=== PATIENT | female | born 1945 | race Two or more races ===

== ENCOUNTER 2024-01-18 08:29 | Outpatient (REF) | payer OTHER, SELFPAY ==
[2024-01-18 10:45] LABS: Anion Gap 13 (12-20); Blood Urea Nitrogen 26 mg/dL (9-16); Calcium 10.1 mg/dL (8.4-10.2); Carbon Dioxide 28 mmol/L (22-29); Chloride 104 mmol/L (96-108); Estimated Glomerular Filt Rate > 60; Glucose Random 99 mg/dL (60-115); Potassium 3.3 mmol/L (3.3-5.1); Sodium 142 mmol/L (135-145)
[2024-01-18 11:04] LABS: T4 Thyroxine 6.8 ug/dL (4.5-12.0)
[2024-01-18 11:06] LABS: Vitamin B12 433 pg/mL (200-900)
== END 2024-01-18 08:30 | disposition home or self-care (01) ==
LOC: HO.LAB 08:29
PROVIDERS: PCP Physician Assistant Medical; Visit Provider Psychiatry & Neurology Neurology
DX: F01.50 Vascular dementia, unspecified severity, without behavioral disturbance, psychotic disturbance, mood disturbance, and anxiety (principal)
CPT/HCPCS: 36415; 80048; 82607; 84436; 84443

== ENCOUNTER 2025-08-31 08:59 | Outpatient (AMB) | payer OTHER, SELFPAY ==
--- NOTE | 2025-08-31 09:07 | A.OFFVIS_ITS ---
Intake Visit Reasons: 6m Dementia Atmospheric Physics Professor Services: Atmospheric Physics Professor Offered & Declined (son to translate) Accompanied by: Son Allergies No Known Allergies Allergy (Verified 08/31/25 09:11) Medication List - Last Reconciled 08/31/25 by Heather Carr CNP amitriptyline 10 mg PO BEDTIME citalopram 20 mg PO DAILY cyanocobalamin (vitamin B-12) 1,000 mcg PO DAILY folic acid 1 mg PO DAILY lisinopril-hydrochlorothiazide 20-25 mg 1 tab PO DAILY memantine 10 mg PO BID 90 days methotrexate sodium 20 mg PO QWEEK metoprolol succinate ER 25 mg PO DAILY mirtazapine 7.5 mg PO BEDTIME potassium chloride ER 20 mEq PO DAILY rosuvastatin 20 mg PO DAILY HPI Comments Details: 80-year-old woman with long history of depression, hypertension, hyperlipidemia, and seronegative rheumatoid arthritis, who is here for memory problems that began around 2019. She is living with her daughter after living alone for 40+ years. She was found to be anemic and follows?with hematology/oncology at [facility] She was doing okay. Memory stable, some days better than others. Forgetful at times and needed reminders. Mood was generally okay. Appetite was okay. Sleep was okay. She was going to day program which she enjoyed. [facility] Medical History (Updated 08/31/25 @ 09:10 by Heather Carr CNP) Depression Seronegative rheumatoid arthritis Hypercholesteremia Hypertension Review of Systems Const Denies chills, Denies daytime sleepiness, Denies difficulty sleeping, Denies fatigue, Denies fever(s), Denies frequent falls, Denies headache(s), Denies increased appetite, Denies poor appetite, Denies snoring, Denies weakness, Denies weight gain and Denies weight loss Eyes Denies loss of vision ENT Denies vertigo, Denies dizziness, Denies headache(s) and Denies neck pain Card Denies chest pain at rest, Denies chest pain with activity, Denies syncope, Denies leg edema, Denies palpitations, Denies dyspnea and Denies dyspnea on exertion Resp Denies cough, Denies dyspnea, Denies dyspnea on exertion and Denies snoring GI Denies abdominal pain, Denies constipation, Denies heartburn, Denies diarrhea and Denies nausea Denies urinary frequency, Denies urinary incontinence and Denies urinary urgency Musc Denies abnormal gait, Denies back pain, Denies myalgias, Reports arthralgias, Denies neck pain, Denies numbness and Denies tingling Neuro Denies abnormal gait, Denies vertigo, Denies dizziness, Denies syncope, Denies frequent falls, Denies headache(s), Denies lack of coordination, Denies loss of vision, Reports memory loss, Denies numbness, Denies Other visual disturbances, Denies restless legs, Denies seizure-like activity, Denies tingling, Denies paresthesias, Denies tremor(s) and Denies weakness Psych Denies anxiety, Denies depression, Denies auditory hallucinations, Reports memory loss and Denies visual hallucinations Endo Denies fatigue and Denies palpitations Physical Exam Const Other: General Appearance:? normal, in no acute distress. Heart:? S1, S2 normal, no murmurs. Lungs:? clear anteriorly and posteriorly. Musculoskeletal:? normal. Extremities:? no edema. Psych:? alert, as below. Neuro Other: Abnormal Neurological Findings: MMSE 24/30. Mental Status: alert, as below. Cranial Nerves: Pupils are equal, round, and reactive to light. External ocular muscles are intact. Visual oconnor are full, no ptosis. Face is symmetrical, no facial weakness or droop. Facial sensations are normal. Tongue protrudes in midline. Palate elevates symmetrically. Shoulder shrugging is normal Motor Examination: Normal muscle tone, bulk and strength. No atrophy or fasciculations. No drift of the extended upper extremities. DTR 2+. Plantars are flexor. Sensory Exam: Normal light touch, temperature, pinprick, vibration, and joint- position sensations. Rhomberg sign is absent. Coordination: No ataxia. No titubation. Gait Exam: Within normal limits. Cerebellar Signs: Macnlt-yz-hoal is okay. Extrapyramidal System: No tremor, rigidity with normal facial expressions. No bradykinesia. No bradyphrenia. Normal arm swing and posture. No propulsion or retropulsion. Speech: Normal. MMSE Level of Consciousness: Alert. Orientation: Knows correct year, month, date, day and season. Knows correct city, county and state. Knows correct location and floor. Registration: Able to register 3 objects. Attention: Serial 7's unable. Recall: Able to recall 2 out of 3 objects. Language: Normal spontaneous speech, fluency, repetition, naming, comprehension, reading, and writing. Total Score: 24/30. 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 Assessment & Plan Assessment & Plan (1) Vascular dementia: Code(s): F01.50 - Vascular dementia, unspecified severity, without behavioral disturbance, psychotic disturbance, mood disturbance, and anxiety Category: Medical Qualifiers: Dementia severity: unspecified severity Dementia behavioral or psychological symptom: unspecified whether behavioral, psychotic, or mood disturbance or anxiety Qualified Code(s): F01.50 - Vascular dementia, unspecified severity, without behavioral disturbance, psychotic disturbance, mood disturbance, and anxiety Plan: Continue memantine 10mg 1 tablet twice a day. Stay physically and socially active. Plan Meds tried: donepezil Coding Level of Care Code Est Pt Level 4 (52926) Diagnoses Vascular dementia, unspecified dementia severity, unspecified whether behavioral, psychotic, or mood disturbance or anxiety F01.50 Dementia severity: unspecified severity Dementia behavioral or psychological symptom: unspecified whether behavioral, psychotic, or mood disturbance or anxiety
--- OUTSIDE RECORDS SUMMARY | 2025-08-31 09:41 | XMS_ITS | Encounter Summary ---
Author Organization [facility] Address [address] [place] [address] Care Team Providers Care Siding Coreboard Inspector Name Role Phone Aamir Dunbar Primary Care Provider [phone] Reason for Visit * Reason Onset Date Comments faxed order 08/24/2025 [facility] - 08/04/25 Encounter Details Date Type Department Care Team (Late st Contact Info) Description 08/24/2025 Telephone Adult Medicine [address] [phone] Aamir Dunbar PA [address] [place] [address] Social History Tobacco Use Types Packs/Day Years Used Date Smoking Tobacco: Never Smokeless Tobacco: Never Alcohol Use Standard Drinks/Week Comments No 0 (1 standard drink = 0.6 oz pur e alcohol) Housing Instability Answer Date Recorde d Are you worried that in the next 2 months you may not have stable housing? No 11/03/2024 Food Access & Nutrition Answer Date Rec orded Do you have access to a vari ety of food including fruits and vegetables? Yes 11/03/2024 Access to Healthcare Answer Date Record ed Within the last 3 months, ho w many times did you visit the emergency department for your medical care? 0 11/03/2024 Health Literacy Answer Date Recorded How often do you need to hav e someone help you when you read instructions, pamphlets, or other written material from your doctor or pharmacy? Never 11/03/2024 Caregiver: How often do you need to have someone help you when you read instructions, pamphlets, or other written material from your doctor or pharmacy? Not on file 11/03/2024 Financial Risk Answer Date Recorded How hard is it for you to pa y for the very basics like food, housing, medical care, and air conditioning / heating? Not very hard 11/03/2024 Transportation Answer Date Recorded Has the lack of transportati on kept you from meetings, work, or from getting things needed for daily living? No Has the lack of transportati on kept you from medical appointments or from getting medications? No 11/03/2024 Social Isolation Answer Date Recorded How often do you feel lonely or isolated from th ose around you? Never 11/03/2024 Food Risk Answer Date Recorded Within the past 12 months we worried whether our food would run out before we got money to buy more. Never true 11/03/2024 Within the past 12 months th e food we bought just didn't last and we didn't have money to get more. Never true 11/03/2024 Dependent Care Answer Date Recorded Do you need help finding or paying for care for your loved ones. For example, child welfare director or elderly care for an older adult? No 11/03/2024 Education Answer Date Recorded Do you think completing more education or training, like finishing a GED, going to college, or learning a trade, would be helpful for you? No 11/03/2024 Employment and Income Answer Date Recor ded During the last four weeks, have you been actively looking for work? No 11/03/2024 Living Situation Answer Date Recorded What is your living situation? Unrecognized valu e 11/03/2024 Interpersonal Safety Answer Date Record ed Physical Abuse Unrecognized value 11/10/2024 Verbal Abuse Unrecognized value 11/10/2024 Comments Unknown Sex and Gender Information Value Date Recorded Sex Assigned at Female 11/17/2024 8:45 AM EST Legal Sex Female 4:37 AM EST Gender Identity Female 11/17/2024 8:45 AM EST Sexual Orientation Straight 11/17/2024 8: 45 AM EST documented as of this encounter Progress Notes * Rody Cedeño [place] - 08/26/2025 12:22 PM EDT Order signed, scanned and faxed back. 08.26.2025 * Alexandru Breaux - 08/24/2025 10:31 AM EDT [facility] orders dated 08/04/25 receieved. Please sign and fax to [phone]. documented in this encounter Plan of Treatment Upcoming Encounters Date Type Department Care Team (Late st Contact Info) Description 09/25/2025 10:30 AM EST Office Visit Adult Medicine [address] [phone] Ana Rai PA [address] [place], [place] 11/26/2025 8:45 AM EST Office Visit [facility] Hematology Oncology [address] [place] [phone] Amie Ross PA [address] [place] [address] 11/27/2025 9:00 AM EST Office Visit Adult Medicine [address] [phone] Aamir Dunbar PA [address] [place] [phone] 02/03/2026 7:00 AM EDT Ancillary Procedure [facility] - [address] Jeff [address] [place] [phone] documented as of this encounter Visit Diagnoses Not on filedocumented in this encounter Additional Health Concerns Assessment Noted Time PHQ-9 Depression Total Score: 6 08/11/20 8:25 AM EDT documented as of this encounter Care Teams Siding Coreboard Inspector Relationship Specialty Start Date End Date Aamir Dunbar PA [address] [place] [address] PCP - General Internal Medicine 10/06/24 documented as of this encounter
--- OUTSIDE RECORDS SUMMARY | 2025-08-31 09:41 | XMS_ITS | Encounter Summary ---
Author Organization [facility] Address [address] [place] [address] Care Team Providers Care Water Plumber Name Role Phone Aamir Dunbar Primary Care Provider [phone] Reason for Visit * Reason Onset Date Comments Results 08/26/2025 Encounter Details Date Type Department Care Team ([facility] st Contact Info) Description 08/26/2025 Telephone Adult Medicine [facility] [address] [place] [phone] Darby Watts PA [address] [place] [phone] Social History Tobacco Use Types Packs/Day Years [...] care for your loved ones. For example, children counselor or elderly care for an older adult? [...] as of this encounter Progress Notes * Florence England - 08/31/2025 8:45 AM EDT Daughter Saskia calling again for results * Kristy Sawant - 08/26/2025 9:04 AM EDT Inform patient: ANY URGENT OR ABNORMAL RESULTS WIILL RESULT IN A CALL BACK TO THE PATIENT ANDREIA. Patient daughter Saskia is calling. States her mother was given paperwork showing results of xray but doesn't know what it means. Saskia is asking that Darby or her Market Research Specialist call to discuss further. Type of test: :xray of back Date test was performed: 08/11/25 Where was the test performed: [facility] Who ordered this test?: Darby BLUE Is the doctor here today?: yes Can the message wait until the doctor returns?: no IF PATIENT'S PCP IS NOT IN INSTRUCT PATIENT THAT THEY WILL RECEIVE A CALL BACK WHEN THE PCP IS IN THE OFFICE NEXT. documented in this encounter Plan of Treatment Upcoming Encounters Date Type Department Care Team (Late st Contact Info) Description 09/25/2025 10:30 AM EST Office Visit Adult Medicine [address] [phone] Ana Rai PA [address] [place], [place] 11/26/2025 8:45 AM EST Office Visit [facility] Hematology Oncology [address] [place] [phone] Amie Ross PA [address] [place] [address] 11/27/2025 9:00 AM EST Office Visit Adult Medicine [address] [phone] Aamir Dunbar PA [address] [place] [phone] 02/03/2026 7:00 AM EDT Ancillary Procedure [facility] - [place] [address] [place] [address] [phone] documented as of this encounter Visit Diagnoses Not on filedocumented in this encounter Additional Health Concerns Assessment Noted Time PHQ-9 Depression Total Score: 6 08/11/20 25 8:25 AM EDT documented as of this encounter Care Teams Water Plumber Relationship Specialty Start Date End Date Aamir Dunbar PA [address] [place] [address] PCP - General Internal Medicine 10/06/24 documented as of this encounter
--- OUTSIDE RECORDS SUMMARY | 2025-08-31 09:41 | XMS_ITS | Encounter Summary ---
Author Organization [facility] Address [address] [facility] [address] [place] [address] Care Team Providers Care Firm Administrator Name Role Phone Unavailable Primary Care Provider Unavailabl e Encounter Details Date Type Department Care Team (Latest Contact Info) Description 03/11/2019 Abstract [facility] CONVERSIONS Dental, Provider, DDS Social History Tobacco Use Types Packs/Day Years Used Date Smoking Tobacco: Never Assessed Comments Unknown Sex and Gender Information Value Date Recorded Sex Assigned at Female 09/04/2022 10:24 AM EDT Legal Sex Female 10:24 AM EDT Gender Identity Not on file Sexual Orientation Not on file documented as of this encounter Plan of Treatment Not on file documented as of this encounter Visit Diagnoses Not on filedocumented in this encounter
--- OUTSIDE RECORDS SUMMARY | 2025-08-31 09:41 | XMS_ITS | Encounter Summary ---
Author Organization [facility] Address [address] [place] [address] Care Team Providers Care Dispatch Associate Name Role Phone Aamir Dunbar Primary Care Provider [phone] Encounter Details Date Type Department Care Team ([facility] st Contact Info) Description 08/12/2025 Results Follow-Up Adult Medicine [facility] [address] [place] [phone] Darby Watts PA [address] [place] [phone] Social History Tobacco Use Types Packs/Day Years [...] care for your loved ones. For example, early childhood education coordinator or elderly care for an older adult? [...] AM EST documented as of this encounter Plan of Treatment Upcoming Encounters Date Type Department Care Team (Late st Contact Info) Description 09/25/2025 10:30 AM EST Office Visit Adult Medicine [address] [phone] Ana Rai PA [address] [place], [place] 11/26/2025 8:45 AM EST Office Visit [facility] Hematology Oncology [address] [place] [phone] Amie Ross PA [address] [place] [address] 11/27/2025 9:00 AM EST Office Visit Adult Medicine [facility] [address] [place] [phone] Aamir Dunbar PA [address] [place] [phone] 02/03/2026 7:00 AM EDT Ancillary Procedure [facility] - [address] Jeff [address] [place] [phone] documented as of this encounter Visit Diagnoses Not on filedocumented in this encounter Additional Health Concerns Assessment Noted Time PHQ-9 Depression Total Score: 6 08/11/20 25 8:25 AM EDT documented as of this encounter Care Teams Dispatch Associate Relationship Specialty Start Date End Date Aamir Dunbar PA [address] [place] [address] PCP - General Internal Medicine 10/06/24 documented as of this encounter
--- OUTSIDE RECORDS SUMMARY | 2025-08-31 09:41 | XMS_ITS | Clinical Summary ---
Author Organization [employer] Address [address] [place] [address] Care Team Providers Care Paper Steamer Name Role Phone Unavailable Primary Care Provider Unavailabl e Social History Tobacco Use Types Packs/Day Years Used Date Smoking Tobacco: Never Assessed Comments Unknown Sex and Gender Information Value Date Recorded Sex Assigned at Female 09/04/2022 10:24 AM EDT Legal Sex Female 10:24 AM EDT Gender Identity Not on file Sexual Orientation Not on file Plan of Treatment Health Maintenance Due Date Last Done Comments Depression Screening 1945 Alcohol/Substance Use Screening 1958 Tobacco Screening 1958 DTaP/Tdap/Td Vaccines (1 - Tdap) 1965 Pneumococcal Vaccine: 50+ Ye ars (1 of 1 - PCV) 1996 Zoster Vaccines (1 of 2) 1996 RSV Patients and Pa tients Aged 60 years or older (1 - 1-dose 75+ series) 2021 COVID-19 Vaccine (1 - 2023-2 5 season) 2025 Influenza Vaccine (#1) 2025 HIB Vaccines Aged Out No longer eligi ble based on patient's age to complete this topic HPV Vaccines Aged Out No longer eligi ble based on patient's age to complete this topic Hepatitis A Vaccines Aged Out No long er eligible based on patient's age to complete this topic Hepatitis B Vaccines Aged Out No long er eligible based on patient's age to complete this topic IPV Vaccines Aged Out No longer eligi ble based on patient's age to complete this topic Meningococcal B Vaccine Aged Out No l onger eligible based on patient's age to complete this topic Meningococcal Vaccine Aged Out No iona maria antonia eligible based on patient's age to complete this topic RSV under 20 months Aged Out No longe r eligible based on patient's age to complete this topic Rotavirus Vaccines Aged Out No longer eligible based on patient's age to complete this topic
--- OUTSIDE RECORDS SUMMARY | 2025-08-31 09:41 | XMS_ITS | Clinical Summary ---
Author Organization [facility] Address [address] [place] [address] Care Team Providers Care Gift Manager Name Role Phone Aamir Dunbar Primary Care Provider [phone] Allergies No known active allergies Medications ASPIRIN ORAL Take 1 tablet by mouth 1 (one) time each day. 12/31/19 14 Active lactose-reduce d food (ENSURE PLUS ORAL) Take 1 Units by mouth 1 (one) time each day. SERGIO-99 1 per day 30 per month with 11 refills 08/14/20 24 Active folic acid (FOLVITE) 1 mg tablet Take 1 tablet (1,000 mcg total) by mouth 1 (one) time each day. 12/15/19 24 Active memantine (NAMENDA) 10 mg tablet Take 1 tablet (10 mg total) by mouth 2 (two) times a day. Active metoprolol succinate (TOPROL-XL) 25 mg 24 hr tablet TAKE 1 TABLET BY MOUTH EVERY DAY 90 tablet 3 09/26/20 24 Active mirtazapine (REMERON) 7.5 mg tablet TAKE 1 TABLET BY MOUTH AT BEDTIME 90 tablet 3 10/06/20 24 Active rosuvastatin (CRESTOR) 20 mg tablet TAKE 1 TABLET BY MOUTH EVERY DAY 90 tablet 3 09/27/20 24 Active citalopram (CeleXA) 20 mg tablet TAKE 1 TABLET BY MOUTH EVERY DAY 90 tablet 3 12/17/19 25 Active potassium chloride (KLOR-CON M20) 20 mEq CR tablet TAKE 1 TABLET BY MOUTH EVERY DAY 90 tablet 1 02/06/20 25 Active amitriptyline (ELAVIL) 10 mg tablet TAKE 1 TABLET BY MOUTH EVERYDAY AT BEDTIME 90 tablet 1 02/06/20 25 Active lisinopril-hyd roCHLOROthiazi de (PRINZIDE,ZEST ORETIC) 20-25 mg per tablet Take 1 tablet by mouth 1 (one) time each day. 90 tablet 06/10/20 25 Active cyanocobalamin (VITAMIN B-12) 1,000 mcg tablet TAKE 1 TABLET (1,000 MCG TOTAL) BY MOUTH ONCE DAILY 90 tablet 1 08/04/20 25 Active methotrexate 2.5 mg tabletIndicati ons:Rheumatoid arthritis without rheumatoid factor, unspecified site (CMS/[facility] V24, CMS/HCC V28) Take 6 tablets (15 mg total) by mouth 1 (one) time per week Follow directions carefully, and ask to explain any part you do not understand. Take exactly as directed. 08/11/20 25 Active donepeziL (ARICEPT) 10 mg tablet Take 1 tablet (10 mg total) by mouth at bedtime. 025 Discontinued( erapy completed) cyanocobalamin (VITAMIN B-12) 1,000 mcg tablet TAKE 1 TABLET (1,000 MCG TOTAL) BY MOUTH ONCE DAILY 90 tablet 1 12/25/19 25 025 Discontinued methotrexate 2.5 mg tabletIndicati ons:Rheumatoid arthritis without rheumatoid factor, unspecified site (CMS/[facility] V24, CMS/HCC V28) TAKE 8 TABLETS BY MOUTH ONE TIME PER WEEK 96 tablet 1 02/06/20 25 025 Discontinued Active Problems Problem Noted Date Diagnosed Date Stage 3a chronic kidney disease (CMS/[facility] V24, CM S/HCC V28) 11/11/2024 Dilatation of thoracic aorta ([facility] V24) 02/28 Assessment & Plan (03/02/2025 3:09 PM EDT): Mildly dilated ascending aorta on last echo. BP at goal<130/80. Will plan to repeat echo in one year to reassess. Abnormal stress test 12/14/2023 Coronary artery disease 12/14/2023 Overview (08/21/2024): Last Assessment & Plan: Abnormal stress test with symptoms of dyspnea on exertion. Stress test did not suggest evidence of ischemia and is most consistent with a prior silent IA involving the inferior wall. I recommended optimization medical therapy with reservation of cardiac catheterization for worsening or refractory symptoms. She continue low- dose of aspirin indefinitely. She continue on statin therapy (I noted a single extremely elevated LDL which I surmise must be artifactual as prior measurements were reasonably controlled). Reasonable to continue current blood pressure regimen. Will add metoprolol as an antianginal. She will reassess her symptoms and we will follow-up with her to make medication adjustments. Assessment & Plan (03/02/2025 3:11 PM EDT): Abnormal stress test with likely prior silent inferior IA. No ischemia on stress test and no ongoing symptoms of coronary insufficiency. Continue on a low dose of aspirin indefinitely. Continue statin therapy (prior very elevated LDL was artifactual). BP at goal <130/80. Continue Metoprolol as anti-anginal therapy. She will let us know if she has new concerning symptoms. 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 08/14/2018 - depo-medrol 80 mg injection, right shoulder Depression 04/19/2010 Osteoarthritis of lumbar spine 10/13/2009 Overview (08/21/2024): On SSI; previous lumbar srurgery 1988 Hyperlipemia 05/12/2009 Resolved Problems Problem Noted Date Diagnosed Date Resolved Date Fall 11/10/2024 11/10/2024 CVA (cerebral vascular accid ent) ([facility]24, [facility] V28) 11/09/2024 11/10/2024 Encounters Date Type Department Care Team Description 08/26/2025 Telephone Adult Medicine [address] [phone] Darby Watts PA 08/24/2025 Telephone Adult [address] [phone] Aamir Dunbar PA 08/20/2025 Telephone Adult [address] [phone] Ramos Chester [place] 08/12/2025 Results Follow-Up [address] [phone] Darby Watts PA 08/11/2025 2:07 PM EDT - 08/11/2025 11:59 PM EDT Hospital Encounter [address] [phone] Spondylosis of lumbar region without myelopathy or radiculopathy Discharge Disposition: Home or Self Care 08/11/2025 1:30 PM EDT Office Visit Adult [address] [phone] Darby Watts PA Hypertension, unspecified type (Primary Dx); Other hyperlipidemia; Prediabetes; Spondylosis of lumbar region without myelopathy or radiculopathy; Seronegative rheumatoid arthritis ([facility] V24, [facility] V28); Stage 3a chronic kidney disease ([facility] V24, [facility] V28); Cognitive impairment; Anemia of chronic disease; Need for influenza vaccination; Rheumatoid arthritis without rheumatoid factor, unspecified site ([facility] V24, [facility] V28) from Last 3 Months Immunizations Immunization Administration Dates Next Due H1N1 Inj Preservative Free 10/13/2009 Influenza Quadravalent, MDCK , 0.5ml, with preservative (Flucelvax) 6mo and older 07/31/2023,08/03/2020 Influenza trivalent, 0.5mL ( Fluad) 65yo and older 08/11/2025,08/13/2024,10/23/2022,08/22,08/17/2019 Influenza trivalent, 0.5mL, preservative free (Fluarix; FluLaval; Fluzone) ages 6mo and older (Afluria) 3 years and older 09/06/2016,08/04/2015,09/24/2013,07/22 Influenza trivalent, with pr eservative (Fluzone; Afluria) 6mo and older 09/03/2019 Influenza, Unspecified 08/06/2020 Pfizer (ages 12 & older) Biv alent, COVID-19 09/20/2022 Pneumococcal conjugate 13 va lent (Prevnar 13, PCV13) 2mo and older 09/06/2016 Pneumococcal polysaccharide 23 valent (Pneumovax 23) 2yo and older 12/06/2011 Td Tetanus diptheria (Tdvax) 7yo and older 12/06/2011 Tdap Tetanus diptheria acell ular pertussis (Boostrix; Adacel) 7yo and older 10/13/2020 Zoster recombinant (Shingrix ) 19yo and older 10/02/2023,07/31/2023 Surgical History Surgery Date Site/Laterality Comments BACK SURGERY PROCEDURE: HISTORICAL BACK SURGERY; COMMENT: dr fuentes lumbar disc SHOULDER SURGERY corsetti PROCEDURE: HISTORICAL SHOULDER SURGERY; COMMENT: bilateral surger for rotator cuff problems CARPAL TUNNEL RELEASE PROCEDURE: HISTORICAL CARPAL TUNNEL REL; COMMENT: right OTHER SURGICAL HISTORY PROCEDURE: REMOVAL OF LEG VEINS; COMMENT: stripping Medical History Medical History Date Comments Osteoarthritis of lumbar spine 10/13/2009 D X:Osteoarthritis of lumbar spine Historical Medical DX 05/12/2009 DX:HTN Vitamin D deficiency 05/12/2009 DX:Vitamin D deficiency DJD of shoulder 12/21/2010 DX:DJD of should er Varicose veins 07/29/2014 DX:Varicose vein s Seronegative rheumatoid arth ritis (CMS/HCC V24, CMS/HCC V28) 03/31/2015 DX:Seronegative rheumatoid arthritis (HCC) Hyperlipemia 05/12/2009 DX:Hyperlipemia HTN (hypertension) 12/06/2011 DX:HTN (hyper tension) ESR raised 12/08/2014 DX:ESR raised Depression 04/19/2010 DX:Depression 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 For example, child abuse worker or elderly care for an older adult? [...] Orientation Straight 11/17/2024 8: 45 AM EST Obstetrics History Last Filed Vital Signs Vital Sign Reading Time Taken Comments Blood Pressure 115/61 08/11/2025 1:33 PM EDT Pulse 62 08/11/2025 1:33 PM EDT Temperature 36.4 C (97.5 F) 08/11/2025 1:33 PM EDT Respiratory Rate 14 08/11/2025 1:33 PM EDT Oxygen Saturation 96% 08/11/2025 1:33 PM EDT Inhaled Oxygen Concentration - - Weight 75.1 kg (165 lb 9.6 oz) 08/11/2025 1:33 P M EDT Height 152.4 cm (5') 08/11/2025 1:33 PM EDT Body Mass Index 32.34 08/11/2025 1:33 PM EDT Plan of Treatment Upcoming Encounters Date Type Department Care Team (Late st Contact Info) Description 09/25/2025 10:30 AM EST Office Visit Adult Medicine [facility] [address] [place], [place] [phone] Ana Rai PA [address], [place] 11/26/2025 8:45 AM EST Office Visit [facility] Hematology Oncology [address] [place] [phone] Amie Ross PA [address] [place] [address] 11/27/2025 9:00 AM EST Office Visit Adult Medicine [address] [phone] Aamir Dunbar PA [address] [place] [phone] 02/03/2026 7:00 AM EDT Ancillary Procedure [facility] [address] [place] [phone] Health Maintenance Due Date Last Done Comments RSV Immunization Adult Patients (1 - 1-dose 75+ series) 2021 COVID-19 Vaccine ( season) 2025 09/20/2022, 11/15/2021, 12/09/2020, Additional history exists Medicare Annual Wellness Visit 08/13/2025 08/13/2024 Social Influencers of Health Screening 11/03/2025 11/03/2024 Falls Risk Assessment 11/10/2025 11/10/2024 , 10/06/2024, 11/06/2023 Hypertension/CHF/CAD Annual BMP Blood Test 05/04/2026 05/04/2025, 04/03/2025, 03/02/2025, Additional history exists Cholesterol Screening (Lipid Panel) 11/10/2029 11/10/2024, 07/23/2024, 07/23/2024 DTaP,Tdap,and Td Vaccines (3 - Td or Tdap) 10/13/2030 10/13/2020, 12/06/2011 Osteoporosis Screening (Bone Density Screening) 12/08/2032 12/08/2022 Pneumococcal Vaccine: 50+ Years Completed 09/06/2016, 12/06/2011 Hepatitis C Screening Completed 08/12/2017 Zoster Vaccines Completed 10/02/2023, 07/31/2023 Depression Screening Completed 08/11/2025, 08/13/20 24 Influenza Vaccine Completed 08/11/2025, , 07/31/2023, Additional history exists HIB Vaccines Aged Out No longer eligi [...] on patient's age to complete this topic MMR Vaccines Aged Out No longer eligi ble based on patient's age to complete this topic Meningococcal ACWY Vaccine Aged Out N o longer eligible based on patient's age to complete this topic Meningococcal B Vaccine Aged Out No l onger eligible based on patient's age to complete this topic RSV Immunization Patients Under 20 months Aged Out No longer eligible based on patient's age to complete this topic Varicella Vaccines Aged Out No longer eligible based on patient's age to complete this topic Procedures Procedure Name Priority Date/Time Associated Diagnosis Comments XR LUMBAR SPINE 4+ VIEWS Routine 08/11/2025 2:18 PM EDT Spondylosis of lumbar region without myelopathy or radiculopathy BASIC METABOLIC PANEL Routine 05/04/2025 8:42 AM EDT Anemia of chronic disease LIPID PANEL WITH REFLEX TO DIRECT LDL Routine 11/10/2024 4:55 AM EST DEPRESSION SCREENING Routine 08/13/2024 FALLS RISK ASSESSMENT Routine 11/06/2023 DXA BONE DENSITY STUDY 1+ SITS AXIAL SKEL Routine 12/08/2022 10:51 AM EST Encounter for immunization Primary osteoarthritis, right hand Primary osteoarthritis, left hand Rheumatoid arthritis without rheumatoid factor, unspecified site (CMS/HCC V24, CMS/HCC V28) Essential (primary) hypertension Pure hypercholesterolemia, unspecified Major depressive disorder, recurrent, unspecified (CMS/HCC V24) HEPATITIS C SCREENING Routine 08/12/2017 from Last 3 Months or Most Recently Relevant to Health Maintenance Results * XR Lumbar Spine 4+ Views (08/11/2025 2:18 PM EDT) Anatomical Region Laterality Modality Spine, L-spine Radiographic Hyun ging 08/11/2025 3:27 PM EDT Impressions 08/11/2025 3:30 PM EDT Spondylosis and scoliosis as described. These have both progressed since the previous study. -------- FINAL REPORT -------- Dictated By: Emani Flaherty Dictated Date: 08/11/2025 15:27 ET Assigned Physician: Emani Flaherty Reviewed and Electronically Signed By: Emani Flaherty Signed Date: 08/11/2025 15:30 ET Workstation ID: [id number] Transcribed By: Self Edit Transcribed Date: 08/11/2025 15:27 ET Narrative 08/11/2025 3:30 PM EDT LUMBOSACRAL SPINE, 4 VIEWS INCLUDING OBLIQUES HISTORY: Pain. Rule out DJD. Prior: Lumbar spine 02/24/2018. FINDINGS: There is normal mild to moderate rotatory levoscoliosis of the lumbar spine. There is slight retrolisthesis of L5 relative to L4 and S1. No fractures are seen. There is disc space narrowing with endplate spurring at L1-2, L2-3, L3-4, L4-5, and L5-S1. There is disc desiccation at L5-S1. There is facet hypertrophy the lower lumbar spine. There is atherosclerosis. Procedure Note Emani Flaherty MD - 08/11/2025 LUMBOSACRAL SPINE, 4 VIEWS INCLUDING OBLIQUES HISTORY: Pain. Rule out DJD. Prior: Lumbar spine 02/24/2018. FINDINGS: There is normal mild to moderate rotatory levoscoliosis of the lumbarspine. There is slight retrolisthesis of L5 relative to L4 and S1. No fractures are seen. There is disc space narrowing with endplate spurring at L1-2, L2-3, L3-4,L4-5, and L5-S1. There is disc desiccation at L5-S1. There is facet hypertrophy the lower lumbar spine. There is atherosclerosis. IMPRESSION: Spondylosis and scoliosis as described. These have both progressed sincethe previous study. -------- FINAL REPORT -------- Dictated By: Emani Flaherty Dictated Date: 08/11/2025 15:27 ET Assigned Physician: Emani Flaherty Reviewed and Electronically Signed By: Emani Flaherty Signed Date: 08/11/2025 15:30 ET Workstation ID: [id number] Transcribed By: Self Edit Transcribed Date: 08/11/2025 15:27 ET us Darby BLUE IMG XR PROCEDURES Final Result * (ABNORMAL) Basic metabolic panel (05/04/2025 8:42 AM EDT) Sodium 139 133 - 145 mmol/L LAB CHEMISTRY METHOD 05/04/2025 11:07 AM [facility] Potassium 3.7 3.5 - 5.5 mmol/L LAB CHEMISTRY METHOD 05/04/2025 11:07 AM [facility] Chloride 106 96 - 110 mmol/L LAB CHEMISTRY METHOD 05/04/2025 11:07 AM [facility] CO2 25 21 - 32 mmol/L LAB CHEMISTRY METHOD 05/04/2025 11:07 AM [facility] Anion Gap 8 3 - 11 LAB CHEMISTRY METHOD 05/04/2025 11:07 AM [facility] Glucose 110(H) 70 - 100 mg/dL LAB CHEMISTRY METHOD 05/04/2025 11:07 AM [facility] BUN 36(H) 5 - 25 mg/dL LAB CHEMISTRY METHOD 05/04/2025 11:07 AM [facility] Creatinine 1.20(H) 0.50 - 1.10 mg/dL LAB CHEMISTRY METHOD 05/04/2025 11:07 AM [facility] eGFR 46(L) >=60 mL/min/1. 73m2 LAB CHEMISTRY METHOD 05/04/2025 11:07 AM EDT [facility] Comment:Calculation based on the Chronic Kidney Disease Epidemiology Collaboration (CKD-EPI) equation refit without adjustment for race. BUN/Creatinine Ratio 30.0 LAB CHEMISTRY METHOD 05/04/2025 11:07 AM EDT [facility] Calcium 9.4 8.5 - 10.5 mg/dL LAB CHEMISTRY METHOD 05/04/2025 11:07 AM EDT [facility] Blood Venous blood specimen / Unknown Venipuncture / Unknown 05/04/2025 8:42 AM EDT 05/04/2025 8:42 AM EDT us Amie BLUE LAB BLOOD ORDERABLES Final Re sult [facility] [address] [place] [address], [place] [phone] * Lipid panel with reflex to direct LDL (11/10/2024 4:55 AM EST) Cholesterol 161 0 - 200 mg/dL LAB CHEMISTRY METHOD 11/10/2024 6:22 AM [facility] Triglycerides 99 0 - 150 mg/dL LAB CHEMISTRY METHOD 11/10/2024 6:22 AM EST [facility] HDL 56 >=40 mg/dL LAB CHEMISTRY METHOD 11/10/2024 6:22 AM EST [facility] LDL Calculated 85 0 - 100 mg/dL LAB CHEMISTRY METHOD 11/10/2024 6:22 AM [facility] VLDL Cholesterol Gerson 19.8 mg/dL LAB CHEMISTRY METHOD 11/10/2024 6:22 AM [facility] Non HDL Chol. (LDL+VLDL) 105 <145 mg/dL LAB CHEMISTRY METHOD 11/10/2024 6:22 AM [facility] Chol/HDL Ratio 2.9 0.0 - 4.4 LAB CHEMISTRY METHOD 11/10/2024 6:22 AM EST [facility] Blood Venous blood specimen / Unknown Venipuncture / Unknown 11/10/2024 4:55 AM EST 11/10/2024 5:50 AM EST Onelia BLUE LAB BLOOD ORDERABLES Fi nal Result [facility] [address] [place] [address], * Depression Screening (08/13/2024) Depression Screening Abstracted Historical Provider MD HEALTH MAINTENANCE Final Result * Falls Risk Assessment (11/06/2023) Falls Risk Assessment Abstracted Historical Provider MD HEALTH MAINTENANCE Final Result * DXA BONE DENSITY STUDY 1+ SITS AXIAL SKEL (12/08/2022 10:51 AM EST) Anatomical Region Laterality Modality Bone Densitometr y 10/23/2022 11:5 7 AM EST Narrative 12/08/2022 5:46 PM EST BONE DENSITY Lumbar Spine T-score is +1.6 (SD relative to 20-29 y/o adult) Z-score is +4.1 (SD relative to age matched peers) This is normal by criteria defined by the WHO. Left Hip T-score is -1.1 Z-score is +0.9 This is consistent with osteopenia by criteria defined by the WHO. Impression: Based on the World Health Organization criteria, Mat Garsia should be classified as having osteopenia. This patient has a 12% risk of major osteoporotic fracture and a 2.4% risk of hip fracture over the next 10 years. (World Health Organization Fracture Risk Assessment) [facility] Department of Internal Medicine recommends using National Osteoporosis Foundation (NOF) guidelines in treatment decisions related to osteoporosis. NOF guidelines suggest considering treatment for postmenopausal women and men aged 50 or older presenting with the following: History of hip or vertebral fracture. T-score less than or equal to -2.5 (DXA) at the femoral neck, total hip, or spine, after appropriate evaluation to exclude secondary causes. Low bone mass (T-score between -1.0 and -2.5 at the femoral neck or spine) AND a 10-year probability of a hip fracture greater than or equal to 3% OR a 10-year probability of a major osteoporosis-related fracture greater than or equal to 20% based on the [place]-adapted WHO algorithm Please note that all treatment decisions require clinical judgment and consideration of individual patient factors, including patient preferences, co-morbidities, previous drug use, risk factors not captured in the FRAX model (e.g., frailty, falls, vitamin D deficiency, increased bone turnover, interval significant decline in bone density) and possible under- or over-estimation of fracture risk by FRAX. Procedure Note Amie Mcdermott MD - 12/11/2023 BONE DENSITY Lumbar Spine T-score is +1.6 (SD relative to 20-29 y/o adult) Z-score is +4.1 (SD relative to age matched peers) This is normal by criteria defined by the WHO. Left Hip T-score is -1.1 Z-score is +0.9 This is consistent with osteopenia by criteria defined by the WHO. Impression: Based on the World Health Organization criteria, Mat Garsia should beclassified as having osteopenia. This patient has a 12% risk of majorosteoporotic fracture and a 2.4% risk of hip fracture over the next 10years. (World Health Organization Fracture Risk Assessment) [facility] Department of Internal Medicine recommendsusing National Osteoporosis Foundation (NOF) guidelines in treatmentdecisions related to osteoporosis. NOF guidelines suggest consideringtreatment for postmenopausal women and men aged 50 or older presentingwith the following: History of hip or vertebral fracture. T-score less than or equal to -2.5 (DXA) at the femoral neck, total hip,or spine, after appropriate evaluation to exclude secondary causes. Low bone mass (T-score between -1.0 and -2.5 at the femoral neck or spine)AND a 10-year probability of a hip fracture greater than or equal to 3% ORa 10-year probability of a major osteoporosis-related fracture greaterthan or equal to 20% based on the [place]-adapted WHO algorithm Please note that all treatment decisions require clinical judgment andconsideration of individual patient factors, including patientpreferences, co-morbidities, previous drug use, risk factors not capturedin the FRAX model (e.g., frailty, falls, vitamin D deficiency, increasedbone turnover, interval significant decline in bone density) and possibleunder- or over-estimation of fracture risk by FRAX. Aamri BLUE IMG DXA PROCEDURES Final Result * Hepatitis C Screening (08/12/2017) [facility] Hepatitis C Screening Abstracted Historical Provider MD HEALTH MAINTENANCE Final Result from Last 3 Months or Most Recently Relevant to Health Maintenance Insurance [employer] MEDICARE Member Subscriber Plan / Payer (Ef fective 2014-Present) Name:Arturo Garsia Relation to Subscriber:Self Name:Mat Garsia Payer ID:[id number] Group ID:[id number] Type:Not on file Address: [place] [address] [address] [id number] Advance Directives Documents on File Type Date Recorded Patient Race Board Attendant Expl anation Advance Directives and Living Will 10/03/2024 5:50 PM MOLST Advance Directives and Living Will 10/03/2024 5:50 PM Healthcare proxy * Full Code - Default (Latest Code Status on File) Date Activated Date Inactivated Comments 11/09/2024 11:47 AM 11/10/2024 3:03 PM This is order is used when code status has not been discussed with the patient, or code status is otherwise unknown/unconfirmed To update the patient's code status, place a code status order. Do not modify or discontinue any currently active code status orders. Care Teams Gift Manager Relationship Specialty Start Date End Date Aamir Dunbar PA [address] [place] [address] PCP - General Internal Medicine 10/06/24
== END 2025-08-31 09:21 | disposition home or self-care (01) ==
LOC: HO.HSM 08:59
PROVIDERS: PCP Physician Assistant Medical; Referring Provider Internal Medicine; Visit Provider Registered Nurse
DX: F01.50 Vascular dementia, unspecified severity, without behavioral disturbance, psychotic disturbance, mood disturbance, and anxiety (principal)
CPT/HCPCS: 99214

== ENCOUNTER → 2025-08-31 08:59 | Outpatient (BNVA) | payer OTHER, SELFPAY | PROVIDERS: PCP Physician Assistant Medical; Referring Provider Internal Medicine; Visit Provider Registered Nurse | DX: F01.50 Vascular dementia, unspecified severity, without behavioral disturbance, psychotic disturbance, mood disturbance, and anxiety (principal) | CPT/HCPCS: 99212 ==

== ENCOUNTER 2025-10-05 14:27 | Outpatient (AMB) | payer OTHER, SELFPAY ==
--- OUTSIDE RECORDS SUMMARY | 2023-07-04 09:30 | XMS_ITS | Continuity of Care Document ---
Author Organization [facility] Address [address] [place] [address] Phone Care Team Providers Care Used Car Salesperson Name Role Phone Jovany TAYLOR FACS RVT Gigi CAAL Unavailable Unavailable Allergies, Adverse Reactions, Alerts Substance Reaction Status Criticality No Known Allergies Active No Inform ation Medications Medication Instructions Dosage Effective Dates (start - stop) Status Comments amitriptyline 10 mg tablet - Active lisinopril 20 mg-hydrochlorothiazide 25 mg tablet - Active rosuvastatin 20 mg tablet - Active diclofenac 1 % topical gel - Active sertraline 100 mg tablet - A ctive methotrexate sodium 2.5 mg tablet - Active aspirin 81 mg tablet,delayed release - Active Procedures Procedure Date Office/Outpt E&M Established 15 Mins Jun Office/Outpt E&M Established 15 Mins Jan PT Did Not Receive Services Phleb Veins - Extrem - To Duplex Scan-extrem Veins; Uni/ 23 Phleb Veins - Extrem - To Endovenous Laser, 1st Vein Endovenous Laser, 1st Vein Ultrason Guidan Needle Bx-rad 3 Endovenous laser vein addon Inj Sclerosing Solution; Sngl 3 Advance Directives Directive Yes / No Effective Date File Name No Information Encounters Encounter Description Practice Location Reason(s) For Visit Diagnoses Date Provider Providers Copied on Encounter Office/Outpt E&M Established 15 Mins [facility], [address] [place] [address] [address], [place], [id number], tel:[phone] [facility] [place] Pain in right lower leg 3 Jovany TAYLOR FACS RVT VI Gigi Vogel. [address], [address], [place], [address], [place]. tel:[phone] Referring Provider: Gigi Manzo MD FACS RVT [facility], [facility] [address], [place], [address]. tel:[phone] Office/Outpt E&M Established 15 Mins [facility], [address] [place] [address] Dr [address], [place], [id number], [place] tel:[phone] [facility] Venous insufficiency (chronic) (peripheral) 3 Jovany TAYLOR FACS T VI Gigi Jaspreet. [address], [address], [place], [address], [place]. tel:[phone] Referring Provider: Gigi Manzo MD FACS RVT [facility], [address], [place], [address]. tel:[phone] [facility], [address] [place] [address] [address], [place], [id number], [place] tel:[phone] [facility] [place] No Information 3 Jovany TAYLOR FACS RVT VI Gigi Vogel. [address], [address], [place], [address], [place]. tel:[phone] Referring Provider: Gigi Manzo MD, FACS RVT RP, [address], [place], [address]. 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 [address], [address], [facility] [place], [address], [place]. tel:[phone] Referring Provider: Gigi Manzo MD FACS RVT RPVI, [address], [place], [address]. tel:[phone] [place] [facility], [address] [place] [address] Dr [address], [place], [id number], [place] tel:[phone] CVR - [place] Encntr for f/u exam aft trtmt for cond oth than malig neoplmVenous insufficiency (chronic) (peripheral) 3 Jovany TAYLOR FACS RVT RPVI Gigi Jaspreet. [address], [address], [place], [address], [place]. tel:[phone] Referring Provider: Gigi Manzo MD FACS RVT RP, [address], [place], [address]. 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 [address], [address], [place], [address], [place]. tel:[phone] Referring Provider: Gigi Manzo MD FACS RVT RPVI, [address], [place], [address]. tel:[phone] [place] [facility], [address] [place] [address] [address], [id number], [place] tel:[phone] CV[place] - [place] Venous insufficiency (chronic) (peripheral) 3 Jovany TAYLOR FACS RVT RPVI Gigi Jaspreet. [address], [address], [place], [address], [place]. [phone] Referring Provider: Gigi Manzo MD FACS RVT RPVI, [address], [place], [address]. tel:[phone] [facility], [address], [place], [id number], [place] tel:[phone] [facility] Venous insufficiency (chronic) (peripheral) 3 Jovany TAYLOR FACS RVT RPVI Gigi Vogel. [address], [address], [place], [address], [place]. [phone] Referring Provider: Gigi Manzo MD FACS RVT [facility], [address], [place], [address]. tel:[phone] Family History Family Member Type Diagnosis Age At Onset No Information Payers Payer name Insurance type Covered alliance party ID Apolinar bernal(s) [facility] [id number] Social History Type Description Quantity Date Captured Comments Alcohol Use Details No Caffeine Use Details Unknown Tobacco Use Status Current non-smoker Smoking Status Never smoker Non-Smoking Tobacco Use Details : No Details Available : No Details Available Sex Female Vital Signs Date / Time: Height Weight BMI Pulse Rate Blood Pressure Temperature Respiratory Rate Body Surface Area Head Circumference Head Circ. Percentile Wt./Emil. Percentile BMI percentile Pulse Ox Inhaled Ox 2:20 PM 60.00 in 78.471 kg (173.00 lbs) 33.7 9 kg/m eter (2) 1.82 meter(2) Chief Complaint And Reason For Visit No Information Reason For Referral Reason For Referral No Information History Of Present Illness Encounter Date Complaint History Of Prese nt Illness No Information Functional Status Date Functional Assessmen t No Information Instructions Date Instruction Additional Infor [place] Patient education booklet given Related to Venous Insufficiency (Chronic / Peripheral) Assessments Type Assessment Date assessment Pain in right lower leg 023 Patient Care Teams Name Effective Dates (start - stop) Status Members No Information
--- NOTE | 2025-10-05 14:48 | A.PHYSOV_ITS ---
Intake Visit Reasons: NPV Esther Ref- back pain Intake Note: Patient is a 80 year old female here for a new patient office visit. Patient is being referred for low back pain. Allergies No Known Allergies Allergy (Verified 10/05/25 14:49) HPI Comments Details: History of Present Illness The patient is a 80 year old individual presenting for evaluation of chronic back pain. The back pain has been present for a long time and is currently rated as 9 out of 10 in severity. The pain is located in the low back, radiates to the hip area, and is associated with numbness in the legs. Symptoms are alleviated s lightly when leaning forward, as with holding onto a shopping cart. The patient has a history of surgery for a herniated disc in the late , though the specific procedure is unknown. The patient also has a history of rheumatoid arthritis, for which the patient has received injections in the shoulder and a finger. Current pain management includes Tylenol, which is not helping, as well as topical heating patches and diclofenac cream. The patient avoids Motrin due to kidney concerns. The patient denies any prior physical therapy or wound care nurse for the back pain. She denies any recent trauma. She finds that her symptoms limit her ability to perform her activities of daily living. She is requesting MRI of the lumbar spine for further evaluation and treatment. We do have x-ray of the lumbar spine reported below. I reviewed the referring provider's no prior to consultation. Pain Description - Onset: The patient reports long-standing pain. - Location: Low back. - Radiation: The pain radiates to the whole hip and into the legs. - Associated Symptoms: Numbness in the legs. - Severity: Current pain is rated as 9 out of 10. - Exacerbating factors: Bending forward or backward and straightening the legs. - Relieving factors: Leaning forward, such as while holding a shopping cart. [facility] Medical History Depression Seronegative rheumatoid arthritis Hypercholesteremia Hypertension Social History Alcohol intake: current Alcohol intake frequency: does not drink Patient Tobacco Use Status: Never used Tobacco Review of Systems Narrative Review of Systems - Musculoskeletal: Reports chronic low back pain and a history of rheumatoid arthritis. - Neurological: Reports numbness in the legs. - Constitutional: Denies groin pain. Physical Exam Exam Exam: Physical Exam Lumbar Spine: Examination of her lumbar spine, there is no visible swelling or deformity. She is tender to the lower lumbar facets. She is otherwise nontender. Full range of motion of the lumbar spine. She does have an increase in pain with facet loading. Special Tests: Lhermittes sign was negative Heel Toe walk is normal Left straight leg raise: Negative Right straight leg raise: Negative Special tests Anjel test is negative Ganslen's test is negative SI Joint compression test negative Lexi test negative Piriformis stretch is negative Lower Extremities: Full range of motion bilateral lower extremities. No calf pain or edema. Neuro: Sensation: Intact to lower extremities bilaterally Strength L2 (Psoas): 5/5 on the left and 5/5 on the right. L3 (Quads): 5/5 on the left and 5/5 on the right. L4 (Ant tibialis): 5/5 on the left and 5/5 on the right. L5 (EHL) 5/5 on the left and 5/5 on the right. S1 (Gastroc): 5/5 on the left and 5/5 on the right. DTR L4: (Patellar) Left 2 Right 2 S1: (Achilles) Left 1 Right 1 Babinski Downgoing No pathologic clonus. No involuntary movement. Assessment & Plan Assessment & Plan (1) Lumbar radiculopathy: Code(s): M54.16 - Radiculopathy, lumbar region Category: Medical (2) Lumbar spondylosis: Code(s): M47.816 - Spondylosis without myelopathy or radiculopathy, lumbar region Category: Medical Plan Pain Management For pain control, the patient can take two 500 mg extra-strength Tylenol tablets up to three times a day. The patient was advised against taking two 650 mg tablets simultaneously. Use of topical agents such as salonpas, diclofenac cream, and Icy Hot can be continued. Anti-inflammatory medications are contraindicated due to the patient's renal status. Plan Patient was informed and verbally consented to the use of an ambient scribe for clinic note documentation during this visit. 1. Chronic Low Back Pain The patient's chronic low back pain, with radiation and numbness in the legs, is likely due to nerve compression. An MRI of the lumbar spine will be ordered to better visualize the discs and nerves, as the previous x-ray was unrevealing. The patient has no contraindications to an MRI, such as a pacemaker or claustrophobia. A follow-up visit will be scheduled after the MRI is completed to review the results and discuss further treatment. We discussed the benefits of proper nutrition and exercise to maintain a healthy body weight to improve longevity and function. We also discussed the benefits of proper lifting techniques, core strengthening and proper posture. Continue Tylenol for pain. Thank you for allowing me to participate in the care of your patient. Orders: Orders MR lumbar spine wo con Today M51.16 - Intervertebral disc disorders with radiculopathy, lumbar region Coding Level of Care Code Tele New Pt Level 4 (64412) Diagnoses Lumbar radiculopathy M54.16 Lumbar spondylosis M47.816
--- OUTSIDE RECORDS SUMMARY | 2025-10-05 17:46 | XMS_ITS | Clinical Summary ---
[facility] Address [address] [place] [address] Care Team Providers Care Bridge Worker Name Role Phone Aamir Dunbar Primary Care Provider [phone] Allergies No known active allergies Medications ASPIRIN ORAL Take 1 tablet by mouth 1 (one) time each day. 12/31/19 14 Active lactose-reduced food (ENSURE PLUS ORAL) Take 1 Units [...] DAY 90 tablet 3 09/26/20 24 Active citalopram (CeleXA) 20 mg tablet TAKE 1 TABLET BY MOUTH EVERY DAY 90 tablet 3 12/17/19 25 Active potassium chloride (KLOR-CON M20) 20 mEq CR tablet TAKE 1 TABLET BY MOUTH EVERY DAY 90 tablet 1 02/06/20 25 Active cyanocobalamin (VITAMIN B-12) 1,000 mcg tablet TAKE 1 TABLET (1,000 MCG TOTAL) BY MOUTH ONCE DAILY 90 tablet 1 08/04/20 25 Active methotrexate 2.5 mg tabletIndicatio ns:Rheumatoid arthritis without rheumatoid factor, unspecified site (CMS/HCC V24, CMS/HCC V28) TAKE 8 TABLETS BY MOUTH ONE TIME PER WEEK 96 tablet 1 09/03/20 25 Active mirtazapine (REMERON) 7.5 mg tablet TAKE 1 TABLET BY MOUTH EVERYDAY AT BEDTIME 90 tablet 1 09/09/20 25 Active amitriptyline (ELAVIL) 10 mg tablet TAKE 1 TABLET BY MOUTH EVERYDAY AT BEDTIME 90 tablet 1 09/09/20 25 Active lisinopril-hydr oCHLOROthiazide (PRINZIDE,ZESTO RETIC) 20-25 mg per tablet TAKE 1 TABLET BY MOUTH EVERY DAY 90 tablet 1 09/09/20 25 Active rosuvastatin (CRESTOR) 20 mg tablet TAKE 1 TABLET BY MOUTH EVERY DAY 90 tablet 3 09/15/20 25 Active mirtazapine (REMERON) 7.5 mg tablet TAKE 1 TABLET BY MOUTH AT BEDTIME 90 tablet 3 10/06/20 24 025 Discontinued rosuvastatin (CRESTOR) 20 mg tablet TAKE 1 TABLET BY MOUTH EVERY DAY 90 tablet 3 09/27/20 24 025 Discontinued amitriptyline (ELAVIL) 10 mg tablet TAKE 1 TABLET BY MOUTH EVERYDAY AT BEDTIME 90 tablet 1 02/06/20 25 025 Discontinued lisinopril-hydr oCHLOROthiazide (PRINZIDE,ZESTO RETIC) 20-25 mg per tablet Take 1 tablet by mouth 1 (one) time each day. 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 No ischemia on stress test and no [...] of leg 01/17/2017 Seronegative rheumatoid arth ritis ([facility] V24, [facility] V28) 03/31/2015 Overview (08/21/2024): Onset late 2013 [...] 11/10/2024 11/10/2024 CVA (cerebral vascular accid ent) ([facility] V24, [facility] V28) 11/09/2024 11/10/2024 Encounters Date Type Department Care Team Description 09/25/2025 10:30 AM EST Office Visit Adult [address] [phone] Ana Rai PA Encounter for subsequent annual wellness visit (AWV) in Medicare patient (Primary Dx) 08/26/2025 Telephone Adult Medicine [address] [phone] Darby Watts PA 08/24/2025 Telephone Adult [address] [phone] Aamir Dunbar PA 08/20/2025 Telephone Adult [address] [phone] Ramos [place] 08/12/2025 Results Follow-Up Adult [address] [phone] Darby Watts PA 08/11/2025 2:07 PM EDT - 08/11/2025 11:59 PM EDT Hospital Encounter [address] [phone] Spondylosis of lumbar region without myelopathy or radiculopathy Discharge Disposition: Home or Self Care 08/11/2025 1:30 PM EDT Office Visit [address] [phone] Darby Watts PA Hypertension, unspecified type (Primary Dx); Other hyperlipidemia; Prediabetes; Spondylosis of lumbar region without myelopathy or radiculopathy; Seronegative rheumatoid arthritis ([facility] V24, [facility] V28); Stage 3a chronic kidney disease ([facility] V24, [facility] V28); Cognitive impairment; Anemia of chronic disease; Need for influenza vaccination; Rheumatoid arthritis without rheumatoid factor, unspecified site ([facility] V24, [facility] V28) from Last 3 Months Immunizations Immunization [...] History Surgery Date Site/Laterality Comments BACK SURGERY 1980s PROCEDURE: HISTORICAL BACK SURGERY; COMMENT: dr fuentes [...] DX:Varicose vein s Seronegative rheumatoid arth ritis ([facility]/HCC V24, CMS/HCC V28) 03/31/2015 DX:Seronegative rheumatoid arthritis (HCC) Hyperlipemia 05/12/2009 DX:Hyperlipemia HTN (hypertension) 12/06/2011 DX:HTN (hyper tension) ESR raised 12/08/2014 DX:ESR raised Depression 04/19/2010 DX:Depression assisted use of drug 12/22/2020 DX:Long te rm [...] you may not have stable housing? No 09/18/2025 Food Access & Nutrition Answer Date Rec orded Do you have access to a vari ety of food including fruits and vegetables? Yes 09/18/2025 Access to Healthcare Answer Date Record ed Within the last 3 months, ho w many times did you visit the emergency department for your medical care? 0 09/18/2025 Health Literacy Answer Date Recorded How often do you need to hav e someone help you when you read instructions, pamphlets, or other written material from your doctor or pharmacy? Always 09/18/2025 Caregiver: How often do you need to have someone help you when you read instructions, pamphlets, or other written material from your doctor or pharmacy? Not on file 09/18/2025 Financial Risk Answer Date Recorded How hard is it for you to pa y for the very basics like food, housing, medical care, and air conditioning / heating? Unable to respond 09/18/2025 Transportation Answer Date Recorded Has the lack of transportati on kept you from meetings, work, or from getting things needed for daily living? Unable to respond 09/18/2025 Has the lack of transportati on kept you from medical appointments or from getting medications? No 09/18/2025 Social Isolation Answer Date Recorded How often do you feel lonely or isolated from those around you? Not asked 09/18/2025 Food Risk Answer Date Recorded Within the past 12 months we worried whether our food would run out before we got money to buy more. Unable to respond 025 Within the past 12 months th e food we bought just didn't last and we didn't have money to get more. Unable to respond 09/05 Dependent Care Answer Date Recorded Do you need help finding or paying for care for your loved ones. For example, children's nursery assistant or elderly care for an older adult? No 09/18/2025 Education Answer Date Recorded Do you think completing more education or training, like finishing a GED, going to college, or learning a trade, would be helpful for you? N/A 09/18/2025 Employment and Income Answer Date Recor ded During the last four weeks, have you been actively looking for work? Patient declined 09/18/2025 Living Situation Answer Date Recorded What is your living situation? Unrecognized valu e 09/18/2025 Interpersonal Safety Answer Date Record ed Physical Abuse Unrecognized value 11/10/2024 Verbal Abuse Unrecognized value 11/10/2024 Comments No Sex and Gender Information Value Date Recorded Sex Assigned at Female 11/17/2024 8:45 AM EST Legal Sex Female 4:37 AM EST Gender Identity Female 11/17/2024 8:45 AM EST Sexual Orientation Straight 11/17/2024 8: 45 AM EST Obstetrics History Last Filed Vital Signs Vital Sign Reading Time Taken Comments Blood Pressure 119/58 09/25/2025 10:17 AM EST Pulse 62 09/25/2025 10:17 AM EST Temperature 36.3 C (97.4 F) 09/25/2025 10:17 AM EST Respiratory Rate 13 09/25/2025 10:17 AM EST Oxygen Saturation 99% 09/25/2025 10:17 AM EST Inhaled Oxygen Concentration - - Weight 75.3 kg (166 lb) 09/25/2025 10:17 AM EST Height 144.8 cm (4' 9 ) 09/25/2025 10:17 AM EST Body Mass Index 35.92 09/25/2025 10:17 AM EST Plan of Treatment Upcoming Encounters Date Type Department Care Team (Late st Contact Info) Description 11/26/2025 8:45 AM EST Office Visit [facility] Hematology Oncology [address] [place] [phone] Amie Ross PA [address] [place] [address] 11/27/2025 9:00 AM EST Office Visit Adult Medicine [address] [phone] Aamir Dunbar PA [address] [place] [address] 02/03/2026 7:00 AM EDT Ancillary Procedure [facility] [address] Jeff [address] [place] [phone] Health Maintenance Due Date Last Done Comments RSV Immunization Adult Patients (1 - 1-dose 75+ series) 2021 COVID-19 Vaccine ( season) 2025 09/20/2022, 11/15/2021, 12/09/2020, Additional history exists Falls Risk Assessment 11/10/2025 11/10/2024 , 10/06/2024, 11/06/2023 Hypertension/CHF/CAD Annual BMP Blood Test 05/04/2026 05/04/2025, 04/03/2025, 03/02/2025, Additional history exists Social Influencers of Health Screening 09/18/2026 09/18/2025, 11/03/2024 Medicare Annual Wellness Visit 09/25/2026 09/25/2025 Cholesterol Screening (Lipid Panel) 11/10/2029 11/10/2024, 07/23/2024, 07/23/2024 DTaP,Tdap,and Td Vaccines (3 - Td or Tdap) 10/13/2030 10/13/2020, 12/06/2011 Osteoporosis Screening (Bone Density Screening) 12/08/2032 12/08/2022 Pneumococcal Vaccine: 50+ Years Completed 09/06/2016, 12/06/2011 Hepatitis C Screening Completed 08/12/2017 Zoster Vaccines Completed 10/02/2023, 07/31/2023 Influenza Vaccine Completed 08/11/2025, , 07/31/2023, Additional history exists Depression Screening Completed 09/18/2025, 08/13/20 24 HIB Vaccines Aged Out No longer eligi [...] Signed Date: 08/11/2025 15:30 ET Workstation ID: [id number] Transcribed By: Self Edit Transcribed Date: 08/11/2025 [...] Signed Date: 08/11/2025 15:30 ET Workstation ID: [id number] Transcribed By: Self Edit Transcribed Date: 08/11/2025 15:27 ET Darby BLUE IMG XR PROCEDURES Final Result * (ABNORMAL) Basic metabolic panel (05/04/2025 8:42 AM EDT) Sodium 139 133 - 145 mmol/L LAB CHEMISTRY METHOD 05/04/2025 11:07 AM [facility] Potassium 3.7 3.5 - 5.5 mmol/L LAB CHEMISTRY METHOD 05/04/2025 11:07 AM [facility] Chloride 106 96 - 110 mmol/L LAB CHEMISTRY METHOD 05/04/2025 11:07 AM [facility] CO2 25 21 - 32 mmol/L LAB CHEMISTRY METHOD 05/04/2025 11:07 AM [facility] Anion Gap 8 3 - 11 LAB CHEMISTRY METHOD 05/04/2025 11:07 AM [facility] Glucose 110(H) 70 - 100 mg/dL LAB CHEMISTRY METHOD 05/04/2025 11:07 AM [facility] BUN 36(H) 5 - 25 mg/dL LAB CHEMISTRY METHOD 05/04/2025 11:07 AM [facility] Creatinine 1.20(H) 0.50 - 1.10 mg/dL LAB CHEMISTRY METHOD 05/04/2025 11:07 AM [facility] eGFR 46(L) >=60 mL/min/1. 73m2 LAB CHEMISTRY METHOD 05/04/2025 11:07 AM [facility] Comment:Calculation based on the Chronic Kidney Disease Epidemiology Collaboration (CKD-EPI) equation refit without adjustment for race. BUN/Creatinine Ratio 30.0 LAB CHEMISTRY METHOD 05/04/2025 11:07 AM EDT [facility] Calcium 9.4 8.5 - 10.5 mg/dL LAB CHEMISTRY METHOD 05/04/2025 11:07 AM EDT [facility] Blood Venous blood specimen / Unknown Venipuncture / Unknown 05/04/2025 8:42 AM EDT 05/04/2025 8:42 AM EDT us Amie BLUE LAB BLOOD ORDERABLES Final Re sult [facility] [address] [place] [address], [place] [phone] * Lipid panel with reflex to direct LDL (11/10/2024 4:55 AM EST) Cholesterol 161 0 - 200 mg/dL LAB CHEMISTRY METHOD 11/10/2024 6:22 AM [facility] Triglycerides 99 0 - 150 mg/dL LAB CHEMISTRY METHOD 11/10/2024 6:22 AM [facility] HDL 56 >=40 mg/dL LAB CHEMISTRY METHOD 11/10/2024 6:22 AM [facility] LDL Calculated 85 0 - 100 mg/dL LAB CHEMISTRY METHOD 11/10/2024 6:22 AM [facility] VLDL Cholesterol Gerson 19.8 mg/dL LAB CHEMISTRY METHOD 11/10/2024 6:22 AM [facility] Non HDL Chol. (LDL+VLDL) 105 <145 mg/dL LAB CHEMISTRY METHOD 11/10/2024 6:22 AM [facility] Chol/HDL Ratio 2.9 0.0 - 4.4 LAB CHEMISTRY METHOD 11/10/2024 6:22 AM [facility] Blood Venous blood specimen / Unknown Venipuncture / Unknown 11/10/2024 4:55 AM EST 11/10/2024 5:50 AM EST Onelia BLUE LAB BLOOD ORDERABLES Fi nal Result [facility] [address] [place] [address], * Depression Screening (08/13/2024) Depression Screening Abstracted [...] (World Health Organization Fracture Risk Assessment) [facility] Department of Internal Medicine recommends using National [...] (World Health Organization Fracture Risk Assessment) [facility] Department of Internal Medicine recommendsusing National Osteoporosis [...] or over-estimation of fracture risk by FRAX. Aamir BLUE IMNasra DXA PROCEDURES Final Result * Hepatitis C Screening (08/12/2017) Hepatitis C Screening Abstracted Historical Provider MD HEALTH MAINTENANCE Final Result from Last 3 Months or Most Recently Relevant to Health Maintenance Insurance [employer] MEDICARE Member Subscriber Plan / Payer (Ef fective 2014-Present) Name:Iveth Garsiaos Relation to Subscriber:Self Name:Iveth Garsiao Payer ID:[id number] Group ID:[id number] Type:Not on file Address: [place] [address] [id number] Advance Directives Documents on File Type Date Recorded Patient District Supervisor Expl anation Advance Directives and Living Will [...] currently active code status orders. Care Teams Bridge Worker Relationship Specialty Start Date End Date Aamir Dunbar PA [address] [place], [place] [id number] PCP - General Internal Medicine 10/06/24
--- OUTSIDE RECORDS SUMMARY | 2025-10-05 17:46 | XMS_ITS | Clinical Summary ---
Author Organization [employer] Address [address] [facility] [address] [place] [address] Care Team Providers Care Clay Processing Labourer Name Role Phone Unavailable Primary Care Provider [...] 1-dose 75+ series) 2021 COVID-19 Vaccine ( - 2024-2 6 season) 2025 Influenza Vaccine (#1) 2025 HIB [...]
--- OUTSIDE RECORDS SUMMARY | 2025-10-05 17:46 | XMS_ITS | Encounter Summary ---
Author Organization [employer] Address [address] [facility] [address] [place] [address] Care Team Providers Care Disc Inspector Name Role Phone Unavailable Primary Care Provider Unavailabl e Encounter Details Date Type Department Care Team (Latest Contact Info) Description 03/11/2019 Abstract [facility] CONVERSIONS Dental, Provider, DDS Social History [...]
--- OUTSIDE RECORDS SUMMARY | 2025-10-05 17:47 | XMS_ITS | Encounter Summary ---
Author Organization [facility] Address [address] [place] [address] Care Team Providers Care Keyboarding Teacher Name Role Phone Aamir Dunbar Primary Care Provider [phone] Encounter Details Date Type Department Care Team ([facility] st Contact Info) Description 08/12/2025 Results Follow-Up Adult Medicine [facility] [address] [place] [phone] Darby Watts PA [address] [place] [phone] Social History Tobacco Use Types Packs/Day Years [...] for your loved ones. For example, child support specialist or elderly care for an older adult? [...] Description 11/26/2025 8:45 AM EST Office Visit [facility] Hematology Oncology [address] [place] [phone] Amie Ross PA [address] [place] [address] 11/27/2025 9:00 AM EST Office Visit Adult Medicine [facility] [address] [place] [address] Aamir Dunbar PA [address] [place] [address] 02/03/2026 7:00 AM EDT Ancillary Procedure [facility] - [address] [place] [address] documented as of this encounter Visit Diagnoses Not on filedocumented in this encounter Additional Health Concerns Assessment Noted Time PHQ-9 Depression Total Score: 6 08/11/20 25 8:25 AM EDT documented as of this encounter Care Teams Keyboarding Teacher Relationship Specialty Start Date End Date Aamir Dunbar PA [address] [place] [address] PCP - General Internal Medicine 10/06/24 documented as of this encounter
== END 2025-10-05 15:13 | disposition home or self-care (01) ==
LOC: HO.HPHYS 14:27
PROVIDERS: PCP Physician Assistant Medical; Visit Provider Physician Assistant
DX: M54.16 Radiculopathy, lumbar region (principal); M47.816 Spondylosis without myelopathy or radiculopathy, lumbar region
CPT/HCPCS: 99204

== ENCOUNTER → 2025-10-05 14:27 | Outpatient (BNVA) | payer OTHER, SELFPAY | PROVIDERS: PCP Physician Assistant Medical; Visit Provider Physician Assistant | DX: M47.816 Spondylosis without myelopathy or radiculopathy, lumbar region (principal); M54.16 Radiculopathy, lumbar region; M54.50 Low back pain, unspecified; G89.29 Other chronic pain; R20.0 Anesthesia of skin | CPT/HCPCS: 99202 ==

== ENCOUNTER → 2025-11-02 07:13 | Outpatient (BNV) | payer OTHER, SELFPAY | PROVIDERS: PCP Physician Assistant Medical; Visit Provider Radiology Diagnostic Radiology | DX: M51.16 Intervertebral disc disorders with radiculopathy, lumbar region (principal); M48.061 Spinal stenosis, lumbar region without neurogenic claudication | CPT/HCPCS: 72148 ==

== ENCOUNTER 2025-11-02 07:15 | Outpatient (REF) | payer OTHER, SELFPAY ==
--- OUTSIDE RECORDS SUMMARY | 2025-11-02 07:21 | XMS_ITS | Clinical Summary ---
Author Organization [facility] Address [address] [place] [address] Care Team Providers Care Water Operator Name Role Phone Aamir Dunbar Primary Care Provider [phone] Allergies No known active allergies Medications ASPIRIN [...] mouth 2 (two) times a day. Active citalopram (CeleXA) 20 mg tablet TAKE 1 TABLET BY MOUTH EVERY DAY 90 tablet 3 12/17/19 25 Active cyanocobalamin (VITAMIN B-12) 1,000 mcg [...] DAY 90 tablet 3 09/15/20 25 Active metoprolol succinate (TOPROL-XL) 25 mg 24 hr tablet TAKE 1 TABLET BY MOUTH EVERY DAY 90 tablet 3 10/30/20 25 Active potassium chloride (KLOR-CON M20) 20 mEq CR tablet TAKE 1 TABLET BY MOUTH EVERY DAY 90 tablet 1 10/30/20 25 Active metoprolol succinate (TOPROL-XL) 25 mg 24 hr tablet TAKE 1 TABLET BY MOUTH EVERY DAY 90 tablet 3 09/26/20 24 025 Discontinued potassium chloride (KLOR-CON M20) 20 mEq CR tablet TAKE 1 TABLET BY MOUTH EVERY DAY 90 tablet 1 02/06/20 25 025 Discontinued Active Problems Problem Noted Date Diagnosed Date Stage 3a chronic kidney disease 11/11/2024 Dilatation of thoracic aorta 02/29/2024 Assessment & Plan (03/02/2025 3:09 PM EDT): [...] 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 No ischemia on stress test and no [...] Varicose vein of leg 01/17/2017 Seronegative rheumatoid arthritis 03/31/2015 Overview (08/21/2024): Onset late 2013 Sulfasalazine [...] Date Fall 11/10/2024 11/10/2024 CVA (cerebral vascular accident) 11/09/2024 11/10/2024 Encounters Date Type Department Care Team Description 09/25/2025 10:30 AM EST Office Visit Adult Medicine [address] [phone] Ana Rai PA Encounter for subsequent annual wellness visit (AWV) in Medicare patient (Primary Dx) 08/26/2025 Telephone Adult Medicine [address] [phone] Darby Watts PA 08/24/2025 Telephone Adult Medicine [address] [phone] Aamir Dunbar PA 08/20/2025 Telephone Adult [address] [phone] Ramos [place] 08/12/2025 Results Follow-Up Adult [address] [phone] Darby Watts PA 08/11/2025 2:07 PM EDT - 08/11/2025 11:59 PM EDT Hospital Encounter [address] [phone] Spondylosis of lumbar region without myelopathy or radiculopathy Discharge Disposition: Home or Self Care 08/11/2025 1:30 PM EDT Office Visit Adult [address] [phone] Darby Watts PA Hypertension, unspecified type (Primary Dx); Other hyperlipidemia; Prediabetes; Spondylosis of lumbar region without myelopathy or radiculopathy; Seronegative rheumatoid arthritis ([facility] V24, [facility] V28); Stage 3a chronic kidney disease ([facility] V24, [facility] V28); Cognitive impairment; Anemia of chronic disease; Need for influenza vaccination; Rheumatoid arthritis without rheumatoid factor, unspecified site ([facility] V24, [facility] V28) from Last 3 Months Immunizations Immunization [...] DX:Varicose vein s Seronegative rheumatoid arth ritis ([facility]/HCC V24, CMS/HCC V28) 03/31/2015 DX:Seronegative rheumatoid arthritis (HCC) Hyperlipemia 05/12/2009 DX:Hyperlipemia HTN (hypertension) 12/06/2011 DX:HTN (hyper tension) ESR raised 12/08/2014 DX:ESR raised Depression 04/19/2010 DX:Depression 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 For example, child nurse or elderly care for an older adult? [...] Orientation Straight 11/17/2024 8: 45 AM EST Last Filed Vital Signs Vital Sign Reading [...] Description 11/26/2025 8:45 AM EST Office Visit [facility] Hematology Oncology [address] [place] [phone] Amie Ross PA [address] [place] [address] 11/27/2025 9:00 AM EST Office Visit Adult Medicine [address] [phone] Aamir Dunbar PA [address] [place] [phone] 02/03/2026 7:00 AM EDT Ancillary Procedure [facility] [address] [place] [address] Health Maintenance Due Date Last Done Comments RSV Immunization Adult Patients (1 - 1-dose 75+ series) 2021 COVID-19 Vaccine (5 - 2024- season) 2025 09/20/2022, 11/15/2021, 12/09/2020, Additional history [...] Procedure Name Priority Date/Time Associated Diagnosis Comments EXTERNAL MAMMOGRAM REPORT 10/03/2025 XR LUMBAR SPINE 4+ VIEWS Routine 08/11/2025 [...] Recently Relevant to Health Maintenance Results * External Mammogram Report (10/03/2025) Anatomical Region Laterality Modality Mammography Provider [facility] BI PROCEDURES Final Result * XR Lumbar Spine 4+ Views (08/11/2025 [...] Signed Date: 08/11/2025 15:30 ET Workstation ID: [id number] Transcribed By: Self Edit Transcribed Date: 08/11/2025 [...] Signed Date: 08/11/2025 15:30 ET Workstation ID: [id number] Transcribed By: Self Edit Transcribed Date: 08/11/2025 15:27 ET Darby BLUE IMG XR PROCEDURES Final Result * (ABNORMAL) Basic metabolic panel (05/04/2025 8:42 AM EDT) Sodium 139 133 - 145 mmol/L LAB CHEMISTRY METHOD 05/04/2025 11:07 AM [facility] Potassium 3.7 3.5 - 5.5 mmol/L LAB CHEMISTRY METHOD 05/04/2025 11:07 AM [facility] Chloride 106 96 - 110 mmol/L LAB CHEMISTRY METHOD 05/04/2025 11:07 AM [facility] CO2 25 21 - 32 mmol/L LAB CHEMISTRY METHOD 05/04/2025 11:07 AM [facility] Anion Gap 8 3 - 11 LAB CHEMISTRY METHOD 05/04/2025 11:07 AM [facility] Glucose 110(H) 70 - 100 mg/dL LAB CHEMISTRY METHOD 05/04/2025 11:07 AM [facility] BUN 36(H) 5 - 25 mg/dL LAB CHEMISTRY METHOD 05/04/2025 11:07 AM [facility] Creatinine 1.20(H) 0.50 - 1.10 mg/dL LAB CHEMISTRY METHOD 05/04/2025 11:07 AM [facility] eGFR 46(L) >=60 mL/min/1. 73m2 LAB CHEMISTRY METHOD 05/04/2025 11:07 AM [facility] Comment:Calculation based on the Chronic Kidney Disease Epidemiology Collaboration (CKD-EPI) equation refit without adjustment for race. BUN/Creatinine Ratio 30.0 LAB CHEMISTRY METHOD 05/04/2025 11:07 AM [facility] Calcium 9.4 8.5 - 10.5 mg/dL LAB CHEMISTRY METHOD 05/04/2025 11:[address] [facility] Blood Venous blood specimen / Unknown Venipuncture / Unknown 05/04/2025 8:42 AM EDT 05/04/2025 8:42 AM EDT us Amie BLUE LAB BLOOD ORDERABLES Final Re sult [facility] [address] [place] [address], [place] [phone] * Lipid panel with reflex to direct LDL (11/10/2024 4:55 AM EST) Cholesterol 161 0 - 200 mg/dL LAB CHEMISTRY METHOD 11/10/2024 6:[address] [facility] Triglycerides 99 0 - 150 mg/dL LAB CHEMISTRY METHOD 11/10/2024 6:[address] [facility] HDL 56 >=40 mg/dL LAB CHEMISTRY METHOD 11/10/2024 6:[address] [facility] LDL Calculated 85 0 - 100 mg/dL LAB CHEMISTRY METHOD 11/10/2024 6:[address] [facility] VLDL Cholesterol G[place] 19.8 mg/dL LAB CHEMISTRY METHOD 11/10/2024 6:[address] [facility] Non HDL Chol. (LDL+VLDL) 105 <145 mg/dL LAB CHEMISTRY METHOD 11/10/2024 6:[address] [facility] Chol/HDL Ratio 2.9 0.0 - 4.4 LAB CHEMISTRY METHOD 11/10/2024 6:22 AM [facility] Blood Venous blood specimen / Unknown Venipuncture / Unknown 11/10/2024 4:55 AM EST 11/10/2024 5:50 AM EST us Onelia BLUE LAB BLOOD ORDERABLES Fi nal Result [facility] [address] [place] [address], * Depression Screening (08/13/2024) Depression Screening Abstracted us Historical Provider MD HEALTH MAINTENANCE Final Result * Falls Risk Assessment (11/06/2023) Falls Risk Assessment Abstracted us Historical Provider HEALTH MAINTENANCE Final Result * DXA BONE [...] (World Health Organization Fracture Risk Assessment) [facility] of Internal Medicine recommends using National [...] (World Health Organization Fracture Risk Assessment) [facility] of Internal Medicine recommendsusing National Osteoporosis [...] of fracture risk by FRAX. Aamir BLUE [facility] DXA PROCEDURES Final Result * Hepatitis C Screening (08/12/2017) Hepatitis C Screening Abstracted us Historical Provider HEALTH MAINTENANCE Final Result from Last 3 Months or Most Recently Relevant to Health Maintenance Insurance [employer] MED[employer] Member Subscriber Plan / Payer (Ef fective 2014-Present) Name:Arturo Garsia Relation to Subscriber:Self Name:Mat Garsia Payer ID:[id number] Group ID:[id number] Type:Not on file Address: [place] [address] [address] [phone] Advance Directives Documents on File Type Date Recorded Patient Sales Manager Prearranged [employer] Expl anation Advance Directives and Living Will [...] currently active code status orders. Care Teams Water Operator Relationship Specialty Start Date End Date Aamir Dunbar PA [address] [place] [address] PCP - General Internal Medicine 10/06/24
--- OUTSIDE RECORDS SUMMARY | 2025-11-02 07:21 | XMS_ITS | Encounter Summary ---
Author Organization [employer] Address [address] [facility] [address] [place] [address] Care Team Providers Care Veneer Drier Name Role Phone Unavailable Primary Care Provider Unavailabl e Encounter Details Date Type Department Care Team (Latest Contact Info) Description 03/11/2019 Abstract [facility] Dental, Provider, DDS Social History [...]
--- OUTSIDE RECORDS SUMMARY | 2025-11-02 07:21 | XMS_ITS | Clinical Summary ---
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
== END 2025-11-02 07:16 ==
LOC: HO.MRI 07:15
PROVIDERS: PCP Physician Assistant Medical; Visit Provider Physician Assistant
DX: M51.16 Intervertebral disc disorders with radiculopathy, lumbar region (principal)
CPT/HCPCS: 72148